=== PATIENT | male | born 1960 | race African-American/Black ===

== ENCOUNTER 2023-04-29 20:01 | Inpatient (IN) | payer OTHER, MEDICAID ==
[~2023-04-29] VITALS: Ht 172.7 cm; Wt 66.2 kg
[~2023-04-29 20:01] MED LIST: ALEN10TA25 PO; AMLO5TAB4 PO; ASPI-1393 PO; ATEN50TA PO; BENA40TA65 PO; CARB200T PO; GLU500 PO; LACTIN PO; LEVE750T66 PO; MULT-634 PO; OMEP20CA4 PO; TAMS0.4C96 PO; VITA400T9 PO
[2023-04-29 20:10] VITALS: BP_SYST 206; PULSE 88; RESP 18; TEMP 98; O2SAT 98
[2023-04-29] MEDS ORDERED: DEXTROSE 50% JECT 50 ML DISP.SYRIN ONE (20:14)
[2023-04-29] MEDS ORDERED: DEXTROSE 50% JECT 50 ML DISP.SYRIN IVP ONE (20:15)
[2023-04-29 21:01] LABS: BASOPHILS % (AUTO) 0.4 % (0.0-2.0); EOSINOPHILS # (AUTO) 0.3 K/uL (0.0-0.4); HEMATOCRIT 32.2 % (36-54); HEMOGLOBIN 10.6 g/dL (14.0-18.0); LYMPHOCYTES # (AUTO) 0.6 K/uL (1.0-5.5); LYMPHOCYTES % (AUTO) 10.8 % (20.5-51.5); MEAN CORPUSCULAR HEMOGLOBIN 30 pg (27-31); MEAN CORPUSCULAR HGB CONC 33 % (32-36); MEAN CORPUSCULAR VOLUME 91 fL (79.0-98.0); MONOCYTES # (AUTO) 0.7 K/uL (0.0-1.0); MONOCYTES % (AUTO) 13.4 % (1.7-9.3); NEUTROPHILS # (AUTO) 3.9 K/uL (1.8-7.7); NEUTROPHILS % (AUTO) 70.4 % (40.0-70.0); PLATELET COUNT (AUTO) 194 K/uL (130-430); RED BLOOD CELL COUNT(AUTO) 3.53 MIL/uL (4.2-6.2); WHITE BLOOD COUNT (AUTO) 5.5 K/uL (4.8-10.8)
[2023-04-29 21:26] LABS: ALANINE AMINOTRANSFERASE 11 U/L (12-78); ALBUMIN 3.2 g/dL (3.4-4.8); ANION GAP 5 (5-15); ASPARTATE AMINOTRANSFERASE 24 U/L (10-37); CALCIUM 8.9 mg/dL (8.4-11.0); CARBON DIOXIDE 31 mmol/L (23-29); CHLORIDE 93 mmol/L (98-107); CREATININE 4.55 mg/dL (0.55-1.30); GFR AFRICAN AMERICAN 17 mL/min (>90); GLUCOSE 111 mg/dL (74-106); POTASSIUM 3.9 mmol/L (3.5-5.1); SODIUM SERUM 129 mmol/L (136-145); TOTAL BILIRUBIN 0.4 mg/dL (0.0-1.0); TOTAL PROTEIN, SERUM 6.7 g/dL (6.4-8.3); UREA NITROGEN, BLOOD 35 mg/dL (8-21)
[2023-04-29 21:29] LABS: BILIRUBIN,DIRECT 0.2 mg/dL (0.0-0.3)
[2023-04-29 21:39] LABS: GFR NON AFRICAN-AMERICAN 14 mL/min (>90)
[2023-04-29] MEDS ORDERED: VANCOMYCIN HCL 1,000 MG in NS 250 ML IV ONE (23:15)
[2023-04-29] MEDS ORDERED: MEROPENEM 1 GM IVPB PREMIX 50 ML IV ONE (23:15)
[2023-04-29] MEDS ORDERED: VANCOMYCIN HCL 1000 MG/VIAL IV ONE (23:39)
[2023-04-29] MEDS ORDERED: MEROPENEM 500 MG VIAL IV ONE (23:40)
[2023-04-30 00:17] LABS: BILIRUBIN,URINE NEGATIVE (NEGATIVE); CLARITY/URINE CLEAR (CLEAR); COLOR,URINE YELLOW (YELLOW); GLUCOSE,URINE NEGATIVE (NEGATIVE); KETONES,URINE NEGATIVE (NEGATIVE); LEUKOCYTE ESTERASE ,URINE NEGATIVE (NEGATIVE); NITRITE, URINE NEGATIVE (NEGATIVE); PROTEIN URINE 3+ (NEGATIVE); UROBILINOGEN,URINE 0.2 (0.2-1.0)
[2023-04-30 00:21] LABS: BLOOD, URINE TRACE (NEGATIVE)
[2023-04-30 00:35] LABS: BACTERIA,URINE None Seen /HPF (None Seen)
[2023-04-30] MEDS ORDERED: D10W 1,000 ML IV ONE (01:45)
[2023-04-30] MEDS ORDERED: GLIM2TAB PO (05:45)
[2023-04-30] MEDS ORDERED: AMLO-506 PO (05:45)
[2023-04-30] MEDS ORDERED: CARV12.548 PO (05:45)
[2023-04-30] MEDS ORDERED: LEVE500T21 PO (05:45)
[2023-04-30] MEDS ORDERED: LEVO250T73 PO (05:45)
[2023-04-30] MEDS ORDERED: CLON0.1T PO (05:45)
[2023-04-30] MEDS ORDERED: GLIM1TAB18 PO (05:45)
[2023-04-30] MEDS ORDERED: HYDR25TA4 PO (05:45)
[2023-04-30] MEDS ORDERED: ATOR20TA64 PO (05:45)
[2023-04-30] MEDS ORDERED: FAMO20TA8 PO (05:45)
[2023-04-30] MEDS ORDERED: CLON1PAT9 TP (05:45)
[2023-04-30] MEDS ORDERED: HYDR-4039 PO (05:45)
[2023-04-30] MEDS ORDERED: PIPERACILLIN/TAZOBACTAM 2.25 GM in NS 50 ML IV SCH (06:00)
[2023-04-30] MEDS ORDERED: PIPERACILLIN/TAZOBACTAM 2.25 GM VIAL IV ONE (06:21)
[2023-04-30] MEDS ORDERED: AZITHROMYCIN 500 MG/VIAL (ZITHROMAX) IV ONE (09:27)
[2023-04-30] MEDS: AZITHROMYCIN 500 MG in NS 250 ML IV SCH (09:31)
[2023-04-30] MEDS ORDERED: cloNIDine HCL 0.1 MG TABLET PO PRN (11:30)
[2023-04-30] MEDS ORDERED: levETIRAcetam 500 MG TABLET PO ONE (11:45)
[2023-04-30] MEDS ORDERED: amLODIPine BESYLATE 5 MG TABLET PO SCH ×2 (11:45→21:00)
[2023-04-30] MEDS ORDERED: amLODIPine BESYLATE 5 MG TABLET PO ONE (12:00)
[2023-04-30] MEDS ORDERED: DEXTROSE 50% JECT 50 ML DISP.SYRIN IVP PRN ×2 (12:00)
[2023-04-30] MEDS ORDERED: D5W 1,000 ML IV PRN ×2 (12:00)
[2023-04-30] MEDS ORDERED: GLUCOSE (DEXTROSE) ORAL GEL -Adults PO PRN ×2 (12:00)
[2023-04-30 13:29] VITALS: BP_SYST 136; PULSE 78; RESP 16; TEMP 97.9
[2023-04-30] MEDS: LACTOBACILLUS RHAMNOSUS GG 1 CAP CAPSULE PO SCH ×2 (17:47→22:17)
[2023-04-30 17:57] VITALS: BP_SYST 190; PULSE 84; RESP 16; TEMP 97.1; O2SAT 99
[2023-04-30] MEDS: hydrALAZINE HCL 25 MG TABLET PO SCH ×2 (18:15→22:17)
[2023-04-30] MEDS ORDERED: LEVETIRACETAM 1000 MG PO SCH (21:00)
[2023-04-30] MEDS ORDERED: ATENOLOL 50 MG TABLET (TENORMIN) PO SCH (21:00)
[2023-04-30] MEDS ORDERED: CARVEDILOL 12.5 MG TABLET (COREG) PO SCH (21:00)
[2023-04-30 21:30] VITALS: O2SAT 97
[2023-04-30] MEDS: CARVEDILOL 25 MG TABLET (COREG) PO SCH (22:18)
[2023-04-30] MEDS: FAMOTIDINE 20 MG TABLET PO SCH (22:18)
[2023-04-30] MEDS: levETIRAcetam 500 MG TABLET PO SCH (22:18)
[2023-04-30] MEDS: amLODIPine BESYLATE 5 MG TABLET PO SCH (22:19)
[2023-04-30] MEDS: TAMSULOSIN HCL 0.4 MG CAP PO SCH (22:20)
[2023-05-01 02:11] VITALS: BP_SYST 139; PULSE 69; RESP 18; TEMP 97.3; O2SAT 97
[2023-05-01 05:44] LABS: BASOPHILS # (AUTO) 0.1 K/uL (0.0-0.2); BASOPHILS % (AUTO) 1.1 % (0.0-2.0); EOSINOPHILS # (AUTO) 0.4 K/uL (0.0-0.4); EOSINOPHILS % (AUTO) 8.3 % (0.0-4.0); HEMATOCRIT 26.6 % (36-54); HEMOGLOBIN 8.9 g/dL (14.0-18.0); LYMPHOCYTES # (AUTO) 0.9 K/uL (1.0-5.5); LYMPHOCYTES % (AUTO) 19.1 % (20.5-51.5); MEAN CORPUSCULAR HEMOGLOBIN 30 pg (27-31); MEAN CORPUSCULAR HGB CONC 33 % (32-36); MEAN CORPUSCULAR VOLUME 90 fL (79.0-98.0); MONOCYTES # (AUTO) 0.7 K/uL (0.0-1.0); MONOCYTES % (AUTO) 15.4 % (1.7-9.3); NEUTROPHILS # (AUTO) 2.6 K/uL (1.8-7.7); NEUTROPHILS % (AUTO) 56.1 % (40.0-70.0); PLATELET COUNT (AUTO) 185 K/uL (130-430); RED BLOOD CELL COUNT(AUTO) 2.95 MIL/uL (4.2-6.2); RED CELL DISTRIBUTION WIDTH 14.6 % (9.0-15.0); WHITE BLOOD COUNT (AUTO) 4.6 K/uL (4.8-10.8)
[2023-05-01 06:06] LABS: ALBUMIN 2.6 g/dL (3.4-4.8); CREATININE 6.07 mg/dL (0.55-1.30); POTASSIUM 4.6 mmol/L (3.5-5.1); TOTAL BILIRUBIN 0.4 mg/dL (0.0-1.0)
[2023-05-01 08:10] VITALS: BP_SYST 146; PULSE 76; RESP 14; TEMP 97.8; O2SAT 94
[2023-05-01 08:37] LABS: TOTAL PROTEIN, SERUM 5.5 g/dL (6.4-8.3)
[2023-05-01 08:42] VITALS: O2SAT 94
[2023-05-01] MEDS ORDERED: levoFLOXacin 250 MG TABLET PO SCH (09:00)
[2023-05-01] MEDS ORDERED: levETIRAcetam 500 MG TABLET PO SCH (09:00)
[2023-05-01] MEDS: levETIRAcetam 500 MG TABLET PO SCH (10:34)
[2023-05-01] MEDS: ASPIRIN 81 MG TABLET(ECOTRIN) PO SCH (10:34)
[2023-05-01] MEDS: AZITHROMYCIN 500 MG in NS 250 ML IV SCH (10:34)
[2023-05-01] MEDS: FAMOTIDINE 20 MG TABLET PO SCH (10:35)
[2023-05-01] MEDS: PANTOPRAZOLE SODIUM 40 MG TAB PO SCH (10:35)
[2023-05-01] MEDS: amLODIPine BESYLATE 5 MG TABLET PO SCH (10:36)
[2023-05-01] MEDS: ATORVASTATIN 20 MG TABLET PO SCH (10:36)
[2023-05-01] MEDS: LACTOBACILLUS RHAMNOSUS GG 1 CAP CAPSULE PO SCH ×2 (10:37→17:33)
[2023-05-01] MEDS: CARVEDILOL 25 MG TABLET (COREG) PO SCH (10:37)
[2023-05-01] MEDS: hydrALAZINE HCL 25 MG TABLET PO SCH ×2 (10:38→17:32)
[2023-05-01] MEDS: lisinopriL 20 MG TABLET PO SCH (10:39)
[2023-05-01 12:05] VITALS: BP_SYST 100; PULSE 78; RESP 16; TEMP 97.2; O2SAT 92
[2023-05-01] MEDS ORDERED: EPOETIN ALFA 4,000 UNITS/ML VIAL SUBCUT SCH (17:00)
[2023-05-01] MEDS ORDERED: HEPARIN SODIUM,PORCINE 5,000 UNITS/ML VIAL MC ONE (17:15)
[2023-05-01] MEDS: SEVELAMER CARBONATE 800 MG TABLET PO SCH (18:57)
[2023-05-01 19:30] VITALS: BP_SYST 164; PULSE 78; RESP 18; TEMP 98.8; O2SAT 95
[2023-05-01 20:00] VITALS: O2SAT 95
[2023-05-02 00:57] VITALS: BP_SYST 158; PULSE 77; RESP 18; TEMP 97.7; O2SAT 96
[2023-05-02] MEDS: LACTOBACILLUS RHAMNOSUS GG 1 CAP CAPSULE PO SCH ×4 (01:26→22:17)
[2023-05-02] MEDS: CARVEDILOL 25 MG TABLET (COREG) PO SCH ×3 (01:27→22:20)
[2023-05-02] MEDS: hydrALAZINE HCL 25 MG TABLET PO SCH ×4 (01:28→22:21)
[2023-05-02] MEDS: amLODIPine BESYLATE 5 MG TABLET PO SCH ×3 (01:28→22:19)
[2023-05-02] MEDS: levETIRAcetam 500 MG TABLET PO SCH ×3 (01:28→22:18)
[2023-05-02] MEDS: FAMOTIDINE 20 MG TABLET PO SCH ×3 (01:29→22:18)
[2023-05-02] MEDS: TAMSULOSIN HCL 0.4 MG CAP PO SCH ×2 (01:30→22:17)
[2023-05-02 04:50] LABS: EOSINOPHILS # (AUTO) 0.3 K/uL (0.0-0.4); EOSINOPHILS % (AUTO) 7.6 % (0.0-4.0); HEMATOCRIT 27.2 % (36-54); HEMOGLOBIN 9.1 g/dL (14.0-18.0); LYMPHOCYTES # (AUTO) 0.8 K/uL (1.0-5.5); LYMPHOCYTES % (AUTO) 22.2 % (20.5-51.5); MEAN CORPUSCULAR HEMOGLOBIN 30 pg (27-31); MEAN CORPUSCULAR HGB CONC 33 % (32-36); MEAN CORPUSCULAR VOLUME 91 fL (79.0-98.0); MONOCYTES # (AUTO) 0.6 K/uL (0.0-1.0); MONOCYTES % (AUTO) 15.6 % (1.7-9.3); NEUTROPHILS # (AUTO) 1.9 K/uL (1.8-7.7); NEUTROPHILS % (AUTO) 53.6 % (40.0-70.0); PLATELET COUNT (AUTO) 172 K/uL (130-430); RED CELL DISTRIBUTION WIDTH 14.8 % (9.0-15.0); WHITE BLOOD COUNT (AUTO) 3.6 K/uL (4.8-10.8)
[2023-05-02 04:55] VITALS: BP_SYST 158; PULSE 80; RESP 18; TEMP 98.2; O2SAT 97
[2023-05-02 05:28] LABS: ALBUMIN 2.7 g/dL (3.4-4.8); CALCIUM 8.7 mg/dL (8.4-11.0); CREATININE 5.1 mg/dL (0.55-1.30); POTASSIUM 4.3 mmol/L (3.5-5.1); TOTAL BILIRUBIN 0.3 mg/dL (0.0-1.0); TOTAL PROTEIN, SERUM 5.8 g/dL (6.4-8.3)
[2023-05-02 08:00] VITALS: BP_SYST 160; PULSE 80; RESP 16; TEMP 97.8; TEMP 98; O2SAT 96
[2023-05-02 08:11] LABS: HEMOGLOBIN A1C 4.23 % (<5.7)
[2023-05-02] MEDS: SEVELAMER CARBONATE 800 MG TABLET PO SCH ×3 (10:58→18:59)
[2023-05-02] MEDS: ASPIRIN 81 MG TABLET(ECOTRIN) PO SCH (10:59)
[2023-05-02] MEDS: PANTOPRAZOLE SODIUM 40 MG TAB PO SCH (10:59)
[2023-05-02] MEDS: ATORVASTATIN 20 MG TABLET PO SCH (10:59)
[2023-05-02] MEDS: AZITHROMYCIN 500 MG in NS 250 ML IV SCH (11:02)
[2023-05-02] MEDS: lisinopriL 20 MG TABLET PO SCH (11:09)
[2023-05-02 12:07] VITALS: BP_SYST 156; PULSE 77; RESP 17; TEMP 98; O2SAT 98
[2023-05-02 16:35] VITALS: BP_SYST 155; PULSE 79; RESP 16; TEMP 98.2; O2SAT 97
[2023-05-02 20:00] VITALS: BP_SYST 154; PULSE 87; RESP 18; TEMP 97.8; O2SAT 94
[2023-05-03 00:59] VITALS: BP_SYST 142; PULSE 83; RESP 18; TEMP 98.6; O2SAT 96
[2023-05-03] MEDS ORDERED: ALENDRONATE SODIUM 35 MG TABLET PO SCH (06:00)
[2023-05-03 06:53] LABS: BASOPHILS % (AUTO) 0.8 % (0.0-2.0); EOSINOPHILS # (AUTO) 0.3 K/uL (0.0-0.4); EOSINOPHILS % (AUTO) 5.6 % (0.0-4.0); HEMOGLOBIN 10.4 g/dL (14.0-18.0); LYMPHOCYTES # (AUTO) 0.7 K/uL (1.0-5.5); MEAN CORPUSCULAR HEMOGLOBIN 30 pg (27-31); MEAN CORPUSCULAR HGB CONC 33 % (32-36); MEAN CORPUSCULAR VOLUME 91 fL (79.0-98.0); MONOCYTES # (AUTO) 0.7 K/uL (0.0-1.0); MONOCYTES % (AUTO) 11.9 % (1.7-9.3); NEUTROPHILS # (AUTO) 3.9 K/uL (1.8-7.7); NEUTROPHILS % (AUTO) 69.7 % (40.0-70.0); PLATELET COUNT (AUTO) 179 K/uL (130-430); RED BLOOD CELL COUNT(AUTO) 3.51 MIL/uL (4.2-6.2); RED CELL DISTRIBUTION WIDTH 14.9 % (9.0-15.0); WHITE BLOOD COUNT (AUTO) 5.6 K/uL (4.8-10.8)
[2023-05-03 07:40] LABS: ALBUMIN 3.3 g/dL (3.4-4.8); CALCIUM 8.7 mg/dL (8.4-11.0); CREATININE 6.78 mg/dL (0.55-1.30); POTASSIUM 4.6 mmol/L (3.5-5.1); TOTAL BILIRUBIN 0.3 mg/dL (0.0-1.0); TOTAL PROTEIN, SERUM 6.6 g/dL (6.4-8.3)
[2023-05-03] MEDS ORDERED: FOSAMAX 70 MG PO SCH (09:00)
[2023-05-03] MEDS: ATORVASTATIN 20 MG TABLET PO SCH (09:23)
[2023-05-03] MEDS: ASPIRIN 81 MG TABLET(ECOTRIN) PO SCH (09:24)
[2023-05-03] MEDS: PANTOPRAZOLE SODIUM 40 MG TAB PO SCH (09:24)
[2023-05-03] MEDS: FAMOTIDINE 20 MG TABLET PO SCH ×2 (09:24→21:54)
[2023-05-03] MEDS: levETIRAcetam 500 MG TABLET PO SCH ×2 (09:24→21:55)
[2023-05-03] MEDS: LACTOBACILLUS RHAMNOSUS GG 1 CAP CAPSULE PO SCH ×3 (09:25→21:53)
[2023-05-03] MEDS: amLODIPine BESYLATE 5 MG TABLET PO SCH ×2 (09:29→22:08)
[2023-05-03] MEDS: CARVEDILOL 25 MG TABLET (COREG) PO SCH ×2 (09:30→22:10)
[2023-05-03] MEDS: hydrALAZINE HCL 25 MG TABLET PO SCH ×3 (09:30→22:09)
[2023-05-03] MEDS: lisinopriL 20 MG TABLET PO SCH (09:31)
[2023-05-03] MEDS: SEVELAMER CARBONATE 800 MG TABLET PO SCH ×3 (09:35→18:37)
[2023-05-03] MEDS: AZITHROMYCIN 500 MG in NS 250 ML IV SCH (09:36)
[2023-05-03 12:09] VITALS: BP_SYST 151; PULSE 78; RESP 20; TEMP 98.3; O2SAT 96
[2023-05-03 15:31] VITALS: BP_SYST 138; PULSE 72; RESP 18; TEMP 98; O2SAT 96
[2023-05-03] MEDS ORDERED: SEVE800T8 PO (16:25)
[2023-05-03] MEDS ORDERED: LISI20TA30 PO (16:25)
[2023-05-03] MEDS ORDERED: ACETAMINOPHEN 325 MG TABLET PO PRN (18:00)
[2023-05-03 20:00] VITALS: BP_SYST 160; RESP 18; TEMP 98; O2SAT 96
[2023-05-03] MEDS: TAMSULOSIN HCL 0.4 MG CAP PO SCH (21:54)
[2023-05-04 00:49] VITALS: BP_SYST 155; PULSE 76; RESP 18; TEMP 97.8; O2SAT 95
[2023-05-04 05:41] LABS: BASOPHILS % (AUTO) 0.6 % (0.0-2.0); EOSINOPHILS # (AUTO) 0.3 K/uL (0.0-0.4); EOSINOPHILS % (AUTO) 5.8 % (0.0-4.0); HEMATOCRIT 30.9 % (36-54); HEMOGLOBIN 10.1 g/dL (14.0-18.0); LYMPHOCYTES # (AUTO) 0.7 K/uL (1.0-5.5); LYMPHOCYTES % (AUTO) 16.4 % (20.5-51.5); MEAN CORPUSCULAR HEMOGLOBIN 30 pg (27-31); MEAN CORPUSCULAR HGB CONC 33 % (32-36); MEAN CORPUSCULAR VOLUME 91 fL (79.0-98.0); MONOCYTES # (AUTO) 0.6 K/uL (0.0-1.0); MONOCYTES % (AUTO) 13.6 % (1.7-9.3); NEUTROPHILS # (AUTO) 2.9 K/uL (1.8-7.7); NEUTROPHILS % (AUTO) 63.6 % (40.0-70.0); PLATELET COUNT (AUTO) 160 K/uL (130-430); WHITE BLOOD COUNT (AUTO) 4.5 K/uL (4.8-10.8)
[2023-05-04 06:09] LABS: ALBUMIN 3.2 g/dL (3.4-4.8); CALCIUM 9.1 mg/dL (8.4-11.0); TOTAL BILIRUBIN 0.4 mg/dL (0.0-1.0); TOTAL PROTEIN, SERUM 6.4 g/dL (6.4-8.3)
[2023-05-04 06:27] LABS: CREATININE 8.04 mg/dL (0.55-1.30)
[2023-05-04] MEDS: SEVELAMER CARBONATE 800 MG TABLET PO SCH ×2 (08:53→13:11)
[2023-05-04] MEDS: AZITHROMYCIN 500 MG in NS 250 ML IV SCH (09:32)
[2023-05-04] MEDS: LACTOBACILLUS RHAMNOSUS GG 1 CAP CAPSULE PO SCH ×2 (10:04→16:37)
[2023-05-04] MEDS: lisinopriL 20 MG TABLET PO SCH (10:05)
[2023-05-04] MEDS: PANTOPRAZOLE SODIUM 40 MG TAB PO SCH (10:06)
[2023-05-04] MEDS: levETIRAcetam 500 MG TABLET PO SCH (10:06)
[2023-05-04] MEDS: CARVEDILOL 25 MG TABLET (COREG) PO SCH (10:06)
[2023-05-04] MEDS: FAMOTIDINE 20 MG TABLET PO SCH (10:06)
[2023-05-04] MEDS: ASPIRIN 81 MG TABLET(ECOTRIN) PO SCH (10:07)
[2023-05-04] MEDS: amLODIPine BESYLATE 5 MG TABLET PO SCH (10:07)
[2023-05-04] MEDS: ATORVASTATIN 20 MG TABLET PO SCH (10:08)
[2023-05-04] MEDS: hydrALAZINE HCL 25 MG TABLET PO SCH ×2 (10:09→16:38)
[2023-05-04 11:30] VITALS: BP_SYST 155; PULSE 86; RESP 17; TEMP 98.1; O2SAT 97
[2023-05-04 16:49] VITALS: BP_SYST 155; PULSE 88; RESP 18; TEMP 98.7; O2SAT 100
== END 2023-05-04 17:05 | disposition home or self-care (01) | DRG 637 ==
LOC: SED 20:01 → STU 04-30 00:43 → SMU 05-04 03:51
PROVIDERS: ADMIT Internal Medicine; ATTEND Internal Medicine
PROC: 5A1D70Z Performance of Urinary Filtration, Intermittent, Less than 6 Hours Per Day (ICD-10-PCS; 2023-04-30)
PROC: 5A1D70Z Performance of Urinary Filtration, Intermittent, Less than 6 Hours Per Day (ICD-10-PCS; principal; 2023-05-03)
DX: E11.649 Type 2 diabetes mellitus with hypoglycemia without coma (principal); G92.8 Other toxic encephalopathy; E87.1 Hypo-osmolality and hyponatremia; E44.1 Mild protein-calorie malnutrition; I12.0 Hypertensive chronic kidney disease with stage 5 chronic kidney disease or end stage renal disease; N18.6 End stage renal disease; E11.22 Type 2 diabetes mellitus with diabetic chronic kidney disease; D63.8 Anemia in other chronic diseases classified elsewhere; E78.5 Hyperlipidemia, unspecified; Z68.22 Body mass index [BMI] 22.0-22.9, adult; G40.909 Epilepsy, unspecified, not intractable, without status epilepticus; H91.3 Deaf nonspeaking, not elsewhere classified; K21.9 Gastro-esophageal reflux disease without esophagitis; Z99.2 Dependence on renal dialysis
CPT/HCPCS: 36415; 70450-TC; 71045; 71250-TC; 72125-TC; 76376; 80048; 80053; 80076; 81000; 81001; 81015; 82962; 83037; 83605; 83880; 84100; 84484; 85025; 87040; 87081; 90935; 90937; 93005; 96365; 96375; 97116-GP; 97530-GP; 99285; G0378; J0456; J0885; J1644; J2185; J2543; J3370; J7050